=== PATIENT | male | born 1955 | race Asian ===

== ENCOUNTER 2016-12-25 09:21 | Day surgery (SDC) | payer BC ==
[~2016-12-25] VITALS: Ht 167.6 cm; Wt 81.3 kg
[2016-12-25 10:07] VITALS: Ht 167.6 cm; Wt 81.3 kg
[2016-12-25 10:16] VITALS: BP 156/74; PULSE 35; RESP 13
[2016-12-25] MEDS ORDERED: HYDR-3672 PO (10:22)
[2016-12-25] MEDS ORDERED: atorvastatin PO (10:22)
[2016-12-25] MEDS ORDERED: allopurinol PO (10:22)
[2016-12-25] MEDS ORDERED: GLYCOPYRROLATE 0.4 MG INJ ONE (10:47)
[2016-12-25] MEDS ORDERED: ATROPINE 1 MG INJ ONE (10:48)
[2016-12-25] MEDS ORDERED: hydrALAzine 20 MG INJ ONE (10:55)
== END 2016-12-25 15:41 | disposition home or self-care (01) ==
LOC: GIL 09:21
PROVIDERS: ATTEND Internal Medicine Gastroenterology
DX: Z12.11 Encounter for screening for malignant neoplasm of colon (principal); Z53.8 Procedure and treatment not carried out for other reasons
CPT/HCPCS: J0360; J0461; Z7610

== ENCOUNTER 2017-01-08 08:04 | Inpatient (IN) | payer BC ==
[~2017-01-08] VITALS: Ht 170.2 cm; Wt 81.2 kg
[~2017-01-08 08:04] MED LIST: HYDR-3672 PO; allopurinol PO; atorvastatin PO
--- NOTE | 2017-01-08 09:58 | RADRPT ---
PROCEDURE: XR Chest. CLINICAL INDICATION: Shortness of breath TECHNIQUE: Single portable view of the chest was obtained COMPARISON: No priors for comparison FINDINGS: The trachea is midline. The cardiac silhouette is enlarged and pulmonary vascularity are within norm al limits. The lungs are clear. The costophrenic angles are sharp. IMPRESSION: 1. Cardiomegaly. No evidence of acute cardiopulmonary disease. RPTAT: AARR Physician Tami Date Time Electronically viewed and signed by Abdulaziz Garza Physician on 01/08/2017 09:58 DENISSE/
[2017-01-08 10:01] LABS: BASOPHIL # 0.1 10^3/ul (0.0-0.1); BASOPHILS % 2.2 % (0.0-2.0); EOSINOPHILS # 0.2 10^3/ul (0.0-0.5); EOSINOPHILS % 4.3 % (0.0-7.0); HEMATOCRIT 48.5 % (42.0-52.0); HEMOGLOBIN 16.5 g/dl (14.0-18.0); LYMPHOCYTES # 1.3 10^3/ul (0.8-2.9); MEAN CORPUSCULAR HEMOGLOBIN 29.7 pg (29.0-33.0); MEAN CORPUSCULAR VOLUME 87.4 fl (82.0-101.0); MEAN PLATELET VOLUME 10.6 fl (7.4-10.4); MONOCYTE # 0.4 10^3/ul (0.3-0.9); MONOCYTES % 9.5 % (0.0-11.0); NEUTROPHIL # 2.6 10^3/ul (1.6-7.5); NEUTROPHILS % 55.8 % (39.0-77.0); PLATELET COUNT 200 10^3/UL (140-415); RED BLOOD COUNT 5.55 10^6/ul (4.70-6.10); WHITE BLOOD COUNT 4.6 10^3/ul (4.8-10.8)
[2017-01-08] MEDS ORDERED: ALLO300T2 PO (10:16)
[2017-01-08] MEDS ORDERED: ATOR10TA65 PO (10:17)
[2017-01-08 10:27] LABS: ANION GAP 14 (8-16); BLOOD UREA NITROGEN 16 mg/dl (7-20); CALCIUM 9.7 mg/dl (8.4-10.2); CARBON DIOXIDE 29 mmol/L (21-31); CHLORIDE 102 mmol/L (97-110); CREATININE 0.86 mg/dl (0.61-1.24); GLUCOSE 97 mg/dl (70-220); SODIUM 141 mmol/L (135-144)
[2017-01-08 10:40] LABS: TROPONIN-I < 0.012 ng/ml (0.00-0.12)
--- NOTE | 2017-01-08 11:27 | ERA ---
ER Documentation Chief Complaint Date/Time DATE: 01/08/17 TIME: 11:22 Chief Complaint dizziness x this am "almost passed out twice" AV block HPI 61-year-old male with a history of hypertension and known heart block presenting to the ER with near syncope this morning. He states he had 2 episodes of feeling very lightheaded but never actually lost consciousness. He denies any associated chest pain, shortness of breath, or diaphoresis. He has seen a back line cook regarding this but has refused a pacemaker placement in the past. However he feels like he is getting worse and is now open for pacemaker placement. He denies any fevers, chills, vomiting, headache, focal weakness or numbness. ROS All systems reviewed and are negative except as per history of present illness. Medications Home Meds Reported Medications Atorvastatin Calcium (Atorvastatin Calcium) 10 Mg Tablet, 10 MG PO QHS, #30 TAB 01/08/17 Allopurinol* (Allopurinol*) 300 Mg Tablet, 300 MG PO DAILY, TAB 01/08/17 Hydralazine Hcl* (Hydralazine Hcl*) 50 Mg Tab, 50 MG PO TID, #90 TAB 12/25/16 Discontinued Reported Medications [atorvastatin] No Conflict Check, 10 MG PO DAILY 12/25/16 [allopurinol] No Conflict Check, PO DAILY 12/25/16 Allergies Allergies: Uncoded Allergies: PENICILLIN (Allergy, Unknown, 01/08/17) PMhx/Soc History of Surgery: No Anesthesia Reaction: No Hx Respiratory Disorders: Yes (asthma) Hx Cardiac Disorders: Yes (htn, bradycardia) Hx Psychiatric Problems: No Hx Miscellaneous Medical Probl: Yes (high cholesterol, gout) Hx Alcohol Use: Yes (occ) Hx Substance Use: No Hx Tobacco Use: No Smoking Status: Former smoker FmHx Family History: No coronary disease Physical Exam Vitals Vital Signs Date Time Temp Pulse Resp B/P Pulse Ox O2 Delivery O2 Flow Rate FiO2 01/08/17 08:06 97.5 35 20 205/120 100 Physical Exam Const: Well-appearing, nontoxic, no apparent distress, no diaphoresis Head: Atraumatic Eyes: Normal Conjunctiva ENT: Normal External Ears, Nose and Mouth. Neck: Full range of motion..~ No meningismus. Resp: Clear to auscultation bilaterally Cardio: Bradycardic with regular rhythm, no murmurs. 2+ distal pulses. No calf tenderness Abd: Soft, non tender, non distended. Normal bowel sounds Skin: No petechiae or rashes Back: No midline or flank tenderness Ext: No cyanosis, or edema. No calf tenderness Neur: Awake and alert, oriented 3, cranial nerves intact, strength and sensations intact in all 4 extremities Psych: Normal Mood and Affect Result Diagram: 01/08/17 0950 01/08/17 0950 Results 24 hrs Laboratory Tests Test 01/08/17 09:50 White Blood Count 4.610^3/ul Red Blood Count 5.5510^6/ul Hemoglobin 16.5g/dl Hematocrit 48.5% Mean Corpuscular Volume 87.4fl Mean Corpuscular Hemoglobin 29.7pg Mean Corpuscular Hemoglobin Concent 34.0g/dl Red Cell Distribution Width 13.0% Platelet Count 42321^3/UL Mean Platelet Volume 10.6fl Neutrophils % 55.8% Lymphocytes % 28.0% Monocytes % 9.5% Eosinophils % 4.3% Basophils % 2.2% Nucleated Red Blood Cells % 0.0/100WBC Neutrophils # 2.610^3/ul Lymphocytes # 1.310^3/ul Monocytes # 0.410^3/ul Eosinophils # 0.210^3/ul Basophils # 0.110^3/ul Nucleated Red Blood Cells # 0.010^3/ul Sodium Level 141mmol/L Potassium Level 4.0mmol/L Chloride Level 102mmol/L Carbon Dioxide Level 29mmol/L Anion Gap 14 Blood Urea Nitrogen 16mg/dl Creatinine 0.86mg/dl Glucose Level 97mg/dl Calcium Level 9.7mg/dl Troponin I < 0.012ng/ml Procedures/MDM EKG#1: Rate/Rhythm: Complete heart block at 33 bpm QRS, ST, T-waves: No changes consistent w/ acute ischemia Impression: Third-degree heart block, no ischemic changes EKG #2: Rate/Rhythm: Complete heart block at 33 bpm QRS, ST, T-waves: No changes consistent w/ acute ischemia Impression: Third-degree heart block, no ischemic changes Labs CBC: no anemia or evidence of infection BMP: No evidence of electrolyte abnormality, renal failure, hypoglycemia Troponin within normal limits Chest x-ray shows cardiomegaly, no acute abnormalities [facility] Patient is presenting with near syncope and EKG consistent with third-degree heart block. His blood pressure was noted to be elevated upon arrival and he was bradycardic. However he is nontoxic and otherwise hemodynamically stable. He does not need transcutaneous pacing at this time. Is no evidence of ACS. I doubt PE, acute stroke, or intracranial hemorrhage. I spoke with Dr. Boss, who will admit the patient to ICU. I paged Dr. Jane, neonatal nurse practitioner for interventional cardiology. Still awaiting a call back from him. However Dr. Boss will follow up with cardiology. Critical Care Time: 35 minutes Treatments/Evaluations: Close monitoring and treatment of unstable vital signs, cardiorespiratory, and neurologic status, while maintaining tight balance of fluid, respiratory, and cardiac interventions. This time includes discussing the case with the patient and the patients family. This time does not include all procedures stated elsewhere in this record. This time also includes reviewing old records, labs and radiological studies. This time includes examining and re-examining the patient. Additionally, this time also includes arranging care with admitting and consulting physicians. Departure Diagnosis: Primary Impression: Complete heart block by electrocardiogram Additional Impression: Near syncope Condition: Critical KAMALJIT MANNING MD Jan 08, 2017 11:27
[2017-01-08] MEDS: SOD CHLORIDE 0.9% 1,000 ML IV SCH (12:45)
[2017-01-08] MEDS ORDERED: ACETAMINOPHEN 325 MG TAB PO PRN (13:00)
[2017-01-08] MEDS ORDERED: MAGNESIUM HYDROXIDE 30ML CUP PO PRN (13:00)
[2017-01-08] MEDS ORDERED: ONDANSETRON 4 MG INJ IV PRN (13:00)
[2017-01-08] MEDS ORDERED: DOCUSATE SODIUM 100 MG CAP PO PRN (13:00)
[2017-01-08 13:44] LABS: CHOL/HDL RATIO 2.2 RATIO
[2017-01-08 14:16] LABS: THYROID STIMULATING HORMONE 3.25 MIU/L (0.465-4.680); TRIIODOTHYRONINE 1.24 ng/ml (0.97-1.69)
--- NOTE | 2017-01-08 16:04 | CONS ---
DATE OF ADMISSION: 01/08/2017 DATE OF CONSULTATION: 01/08/2017 REASON FOR CONSULTATION: Bradycardia, symptomatic. REQUESTING PHYSICIAN: Dr. Ojeda from the Emergency Department. HISTORY OF PRESENT ILLNESS: Mr. Wylie is a 61-year-old male with history of hypertension, dyslipidemia, gout, prior tobacco, asthma who presents with complaints of dizziness and presyncopal episodes of onset this morning. Patient had been undergoing evaluation for possible permanent pacemaker implantation due to recurrent bradyarrhythmias. The patient had refused prior permanent pacemaker implantations after 3 different cardiologists had recommended it. The patient states that he was in his primary care office yesterday and was noted to have a heart rate of 38, but at that time states he did not feel dizziness or weakness and subsequently was instructed to go to the Emergency Department, but instead went home. This morning when the patient awoke, he had dizziness, weakness with presyncopal episodes and thus presented to the Emergency Department here at [facility]. Upon arrival , temperature 97.5, blood pressure markedly elevated at 205/120, pulse 35, respiratory rate 20, saturating 100%. The patient's labs revealed a white count 4.6, hemoglobin 6.5, platelet count 200. Sodium 141, potassium 4.0, creatinine 0.86, BUN 16. Troponin negative. The patient underwent a chest x- ray revealing cardiomegaly, no acute cardiopulmonary abnormalities. Patient's electrocardiogram revealed a rhythm consistent with a sinus rhythm with underlying heart block 2:1 and at times likely complete heart block and a most likely junctional escape and rate of 36, with no significant ST-T wave abnormalities. The patient's blood pressure has remained stable. Patient now awaits admit to the ICU. PAST MEDICAL HISTORY: As above in HPI. MEDICATIONS CURRENTLY IN HOSPITAL: 1. Lovenox 30 mg subcutaneously daily. 2. Protonix 40 mg IV daily. 3. Zofran p.r.n. 4. Tylenol p.r.n. 5. Colace p.r.n. 5. IV fluid hydration at 50 mL an hour. ALLERGIES: NO KNOWN DRUG ALLERGIES. SOCIAL HISTORY: Former tobacco, social ETOH. No illicit drug use. FAMILY HISTORY: Negative for sudden cardiac or early CAD. REVIEW OF SYSTEMS: As above in HPI. CONSTITUTIONAL: No fevers, chills. PULMONARY: No current shortness of breath. CARDIOVASCULAR: Bradycardia, weakness. GASTROINTESTINAL: No vomiting. GENITOURINARY: No hematuria. MUSCULOSKELETAL: Degenerative joint disease. PSYCHIATRIC: The patient denies depression. NEUROLOGIC: No documented history of CVA. PHYSICAL EXAMINATION VITAL SIGNS: Temperature 97.5, blood pressure most recently 171/70, pulse in the 30s, saturating 99% on room air. GENERAL: The patient is alert, awake, complaining of generalized dizziness, weakness. NECK: JVP approximately 8 to 9 cm of water. CHEST: Fair air movement throughout. HEART: Bradycardic, regular rhythm, normal S1, S2, I/ systolic murmur, nondisplaced PMI. ABDOMEN: Positive bowel sounds, soft. EXTREMITIES: No pitting edema, 1+ pulses bilaterally posterior tibial. LABORATORY DATA: As above in HPI. No further labs for my review at this time. IMAGING STUDIES: As above in HPI. No further imaging studies at this time. ECG: As above in HPI. No further electrocardiograms for my review at this time. IMPRESSION: 1. Bradycardia, symptomatic with 2:1 AV block and likely episodes of higher degree complete heart block. 2. Abnormal electrocardiogram 3. Dizziness, weakness secondary to symptomatic bradycardia. 4. Hypertension, currently uncontrolled. 5. History of dyslipidemia. 6. History of asthma. 7. For tobacco intake. RECOMMENDATIONS: 1. At this time, would admit patient to ICU monitoring and follow on telemetry closely. 2. Refrain from george agents at this time. 3. Reasonable to resume patient's low dose hydralazine. Follow blood pressure closely. 4. Complete a rule out for myocardial infarction to ensure that the patient's constellation of symptoms are not due to an acute coronary syndrome, acute myocardial infarction thus send troponins q.6h. x2. 5. Check a 2D echo to further assess patient's ejection fraction, wall motion and any major valve abnormalities. 6. Check a TSH to be sure subclinical hypothyroidism. He is not continuing any bouts of bradycardia. 7. Check a fasting lipid panel for general risk stratification and initiate lipid-lowering medication as necessary. 8. Maintain atropine at bedside 9. The patient will be scheduled for permanent pacemaker implantation as soon as scheduling allows, likely first thing tomorrow morning. Thank you for allowing me to take part in the care of this patient. I will continue to follow along closely with you. Further recommendations will be made as the patient progresses through his inpatient hospital clinical course. Dictated By: SRUTHI NESBITT/NILESH Conf#: [id number] DID#: [id number] CC: PARISH WHITTEN MD;*EndCC* MTDD
--- NOTE | 2017-01-08 19:53 | QN ---
Documentation Comment [id number] PARISH WHITTEN MD Jan 08, 2017 19:53
--- NOTE | 2017-01-08 20:28 | RADRPT ---
Echocardiogram Report Patient Name: HEATH ARRINGTON Gender: Male Date: 1955 Study Date: 08-Jan-2017 Gallery Manager: LYNETTE Location: [facility] Ref. Physician: PARISH WHITTEN Quality: Good Procedures: Transthoracic echocardiogram with complete 2D, M-Mode, and doppler examination. Indications: Coronary Artery Disease. 2D/M Mode Doppler Measurement Value Normal Ranges Measurement Value Normal Ranges AoR Diam MM 3.1 cm JODI Vmax 2.5 cm2 ACS MM 1.9 cm JODI VTI 2.5 cm2 LA/Ao MM 1.3 AV Peak Dung 1.4 m/sec LA Dimen MM 3.9 cm AV Peak PG 7.8 mmHg LVIDd 2D 4.9 3.5 - 5.6 cm LVOT Peak Dung 1.1 m/sec LVIDs 2D 3.2 2.1 - 4.1 cm LVOT Peak PG 4.9 mmHg LVPWd 2D 1.1 0.6 - 1.1 cm MV E Peak Dung 1.0 m/sec IVSd 2D 1.1 0.6 - 1.1 cm MV A Peak Dung 0.7 m/sec EDV 2D 114.7 cm3 MV E/A 1.3 ESV 2D 31.5 cm3 MV Decel Time 156 msec LVOT Diam 2.0 cm MV Decel [place] 6 MV E/A 1.3 TR Peak Dung 2.1 m/sec TR Peak PG 18.1 mmHg Findings Left Ventricle: Normal left ventricular systolic function. Normal left ventricular cavity size. Normal left ventricular wall thickness. Ejection fraction is visually estimated at 55 %. Right Ventricle: Normal right ventricular size. Normal right ventricular systolic function. Left Atrium: The left atrium is normal in size. Right Atrium: The right atrium is normal in size. Mitral Valve: Trace mitral regurgitation. Aortic Valve: Trace aortic valve regurgitation. Tricuspid Valve: Estimated peak PA systolic pressure 23 mmHg. There is trace tricuspid regurgitation. Pulmonic Valve: Normal pulmonic valve appearance. Pericardium: Normal pericardium with no significant pericardial effusion. Aorta: Normal aortic root. IVC: Normal size and normal respiratory collapse consistent with normal right atrial pressure. Conclusions 1.Normal left ventricular systolic function. Normal left ventricular cavity size. Normal left ventricular wall thickness. Ejection fraction is visually estimated at 55 %. 2.Trace mitral regurgitation. 3.Trace aortic valve regurgitation. 4.Estimated peak PA systolic pressure 23 mmHg. There is trace tricuspid regurgitation. Electronically Signed By: Van Jane 08-Jan-2017 20:28:03 -0700 Patient Name: HEATH ARRINGTON Study Date: 08-Jan-[id number]
[2017-01-09] VITALS (28 sets, daily range): BP systolic 130–176; BP diastolic 73–114; PULSE 34–76; RESP 10–23; TEMP 97.9; Ht 170.2 cm; Wt 81.2 kg
--- NOTE | 2017-01-09 06:07 | HP ---
DATE OF ADMISSION: 01/08/2017 HISTORY OF PRESENT ILLNESS: A 61-year-old male with history of gout, dyslipidemia, hypertension, mayfield s history of dizziness. He has seen Dr. James as an outpatient, after that he has seen Dr. Foster Crawford from cardiology who recommended him to have pacemaker placement and then he lost his ins urance, then he saw Dr. Curiel who had cardiac workup done. Per the patient, the patient will nee d pacemaker. The patient now presents to this hospital complaining of dizziness, has heart rate run aaron at 36 with third-degree heart block. Being seen by Dr. Van Jane in consultation. The pat ient denies any chest pain, palpitations right now. PAST MEDICAL HISTORY: Hypertension, cardiac arrhythmia, gout, dyslipidemia. ALLERGY HISTORY: PENICILLIN. SOCIAL HISTORY: Negative. FAMILY HISTORY: Negative. MEDICATION HISTORY: 1. Allopurinol. 2. Lipitor. 3. Hydralazine. REVIEW OF SYSTEMS: HEENT: Unremarkable. RESPIRATORY: Unremarkable. CARDIOVASCULAR: As mentioned above. ABDOMEN: Unremarkable. EXTREMITIES: Unremarkable. CENTRAL NERVOUS SYSTEM: On and off dizziness, no vertigo. PHYSICAL EXAMINATION: GENERAL: The patient is awake, alert. VITAL SIGNS: Stable. HEAD: Atraumatic, normocephalic. Pupils equal, reactive to light. No pallor or conjunctival icter us. NECK: Supple, no JVD. LUNGS: Clear. CARDIOVASCULAR: S1, S2 normal. The patient has bradycardia. ABDOMEN: Soft, nontender. Bowel sounds positive. No palpable mass. EXTREMITIES: No cyanosis, clubbing, edema. CENTRAL NERVOUS SYSTEM: The patient is awake, alert with no focal deficit. LABORATORY DATA: WBC 4.6, hematocrit 48.5. The patient has chest x-ray with cardiomegaly. IMPRESSION: 1. The patient has dizziness. 2. The patient has cardiac arrhythmia with third degree heart block. 3. Other diagnosis: History of gout. PLAN: To obtain lipid panel, thyroid panel, IV fluids, a 2D echo. The patient will be seen in card iology consultation and possibly will have a pacemaker placement. Orders were done. Dictated By: PARISH REYNOLDS/NILESH Conf#: [id number] DID#: [id number]
[2017-01-09] MEDS: PANTOPRAZOLE 40 MG INJ IV SCH (06:20)
[2017-01-09 06:50] LABS: BASOPHIL # 0.1 10^3/ul (0.0-0.1); BASOPHILS % 1.5 % (0.0-2.0); EOSINOPHILS # 0.2 10^3/ul (0.0-0.5); EOSINOPHILS % 5.2 % (0.0-7.0); HEMATOCRIT 43.9 % (42.0-52.0); HEMOGLOBIN 14.8 g/dl (14.0-18.0); LYMPHOCYTES # 1.3 10^3/ul (0.8-2.9); MEAN CORPUSCULAR HEMOGLOBIN 29.6 pg (29.0-33.0); MEAN CORPUSCULAR HGB CONC 33.7 g/dl (32.0-37.0); MEAN CORPUSCULAR VOLUME 87.8 fl (82.0-101.0); MEAN PLATELET VOLUME 10.9 fl (7.4-10.4); MONOCYTE # 0.4 10^3/ul (0.3-0.9); MONOCYTES % 8.4 % (0.0-11.0); NEUTROPHIL # 2.6 10^3/ul (1.6-7.5); NEUTROPHILS % 55.7 % (39.0-77.0); PLATELET COUNT 181 10^3/UL (140-415); RED CELL DISTRIBUTION WIDTH 13.1 % (11.5-14.5); WHITE BLOOD COUNT 4.6 10^3/ul (4.8-10.8)
[2017-01-09 07:04] LABS: CALCIUM 8.9 mg/dl (8.4-10.2); CREATININE 0.86 mg/dl (0.61-1.24)
[2017-01-09 07:06] LABS: INR 0.92; PROTIME 12.4 Sec (12.2-14.2)
[2017-01-09 07:07] LABS: PARTIAL THROMBOPLASTIN TIME 31.1 Sec (25.0-35.0)
[2017-01-09] MEDS: ENOXAPARIN 30 MG/0.3 ML SYG SC SCH (09:00)
[2017-01-09] MEDS: SOD CHLORIDE 0.9% 1,000 ML IV SCH (09:43)
--- NOTE | 2017-01-09 12:27 | CONS ---
Date/Time of Note Date/Time of Note DATE: 01/09/17 TIME: 12:22 Assessment/Plan Assessment/Plan Chief Complaint/Hosp Course IMPRESSION: 1. Bradycardia, symptomatic with 2:1 AV block and likely episodes of higher degree complete heart block. TSH WNL 2. Abnormal electrocardiogram with nonspecific ST acute coronary syndrome.- negatuve trop x 3/NL EF by echo this admit 3. Dizziness, weakness secondary to symptomatic bradycardia. 4. Hypertension-moderately hold 5. History of dyslipidemia. 6. History of asthma. 7. For tobacco intake. Recc: -Tele -serial ecg's -For PPM implant today -Contijsamuel hydralazine Problems: Consultation Date/Type/Reason Admit Date/Time Jan 08, 2017 at 13:17 Initial Consult Date 01/08/2017 Type of Consultation: Cardiology Reason for Consultation Bradycardia Referring Provider: PARISH WHITTEN MD Exam/Review of Systems Vital Signs Vitals Vital Signs Date Time Temp Pulse Resp B/P Pulse Ox O2 Delivery O2 Flow Rate FiO2 01/09/17 08:00 39 01/09/17 07:38 97.9 15 174/71 99 Room Air Exam Review of Systems: CONSTITUTIONAL: No fevers, chills. PULMONARY: No sob CARDIOVASCULAR: No chest pain/palpitations GASTROINTESTINAL: No nausea/vomiting. GENITOURINARY: No hematuria/dysuria. MUSCULOSKELETAL: No myagias/arthalgias. PSYCHIATRIC: The patient denies depression. NEUROLOGIC: Weakness Constitutional: alert Psych: no complaints Head: normocephalic ENMT: mucosa pink and moist Neck: jvd (9 cm water), supple Respiratory: diminished breath sounds Cardiovascular: regular rate and rhythm Gastrointestinal: non-tender, soft Musculoskeletal: muscle tone (normal) Extremities: edema (none) Neurological: other (No focal deficits) Results Result Diagram: 01/09/17 0538 01/09/17 0538 Results 24 hrs Laboratory Tests Test 01/08/17 12:50 01/08/17 14:40 01/08/17 21:00 01/09/17 02:50 Triglycerides Level 93 Cholesterol Level 174 LDL Cholesterol, Calculated 77 HDL Cholesterol 78 Cholesterol/HDL Ratio 2.2 Thyroid Stimulating Hormone (TSH) 3.250 Thyroxine (T4) 10.0 Total Triiodothyronine 1.24 Troponin I < 0.012 < 0.012 < 0.012 Test 01/09/17 05:38 White Blood Count 4.6 L Red Blood Count 5.00 Hemoglobin 14.8 Hematocrit 43.9 Mean Corpuscular Volume 87.8 Mean Corpuscular Hemoglobin 29.6 Mean Corpuscular Hemoglobin Concent 33.7 Red Cell Distribution Width 13.1 Platelet Count 181 Mean Platelet Volume 10.9 H Neutrophils % 55.7 Lymphocytes % 29.0 Monocytes % 8.4 Eosinophils % 5.2 Basophils % 1.5 Nucleated Red Blood Cells % 0.0 Neutrophils # 2.6 Lymphocytes # 1.3 Monocytes # 0.4 Eosinophils # 0.2 Basophils # 0.1 Nucleated Red Blood Cells # 0.0 Prothrombin Time 12.4 Prothrombin Time Ratio 1.0 INR International Normalized Ratio 0.92 Activated Partial Thromboplast Time 31.1 Sodium Level 139 Potassium Level 4.0 Chloride Level 105 Carbon Dioxide Level 25 Anion Gap 13 Blood Urea Nitrogen 19 Creatinine 0.86 Glucose Level 93 Calcium Level 8.9 Medications Medications Current Medications Sodium Chloride (NS) 1,000 ml @ 50 mls/hr Q20H IV Last administered on 09:43; Admin Dose 50 MLS/HR; Start 01/08/17 at 12:45 Ondansetron HCl (Zofran Inj) 4 mg Q6H PRN IV NAUSEA AND/OR VOMITING; Start 02/14 at 13:00 Acetaminophen (Tylenol Tab) 650 mg Q6H PRN PO PAIN LEVEL 1-3 OR FEVER; Start 01/08/17 at 13:00 Docusate Sodium (Colace) 100 mg Q12H PRN PO CONSTIPATION; Start 01/08/17 at 13 :00 Magnesium Hydroxide (Milk Of Mag) 30 ml DAILY PRN PO CONSTIPATION; Start 01/08 at 13:00 Pantoprazole (Protonix Iv) 40 mg DAILY@06 IV Last administered on 01/09/17 06 :20; Admin Dose 40 MG; Start 01/09/17 at 06:00 Enoxaparin Sodium (Lovenox) 30 mg DAILY SC ; Start 01/09/17 at 09:00 Hydralazine HCl (Apresoline) 25 mg TID PO Last administered on 01/09/17 10:20 ; Admin Dose 25 MG; Start 01/08/17 at 21:00 SRUTHI CHOW Jan 09, 2017 12:27
[2017-01-09] MEDS ORDERED: IODIXANOL LOCM 50 ML BTL ONE (12:32)
[2017-01-09] MEDS ORDERED: CEFAZOLIN 2 GM/50 ML (PMX) 50 ML IVPB ONE (12:32)
[2017-01-09] MEDS ORDERED: LIDOCAINE 1%/EPI 30 ML INJ ONE (12:33)
[2017-01-09] MEDS ORDERED: SOD CHLORIDE 0.9% 1,000 ML IV SCH (13:35)
--- NOTE | 2017-01-09 13:35 | OPR ---
Date/Time of Note Date/Time of Note DATE: 01/09/17 TIME: 13:31 Operative Report Free Text/Dictation complete heart block, DDD [facility] MRI Pacer set at 60 A-lead placed: indication need for a-v synchrony in young active patient Preoperative Diagnosis CHB Postoperative Diagnosis CHB Operation/Procedure Performed [facility] DDD pacer MRI Surgeon see signature line Parimutuel Ticket Checker none Anesthesia Type: MAC Estimated Blood Loss: 0 - 10 ml's Transfusion none Specimen none Grafts/Implants pacer Complications none Pt Condition Post Procedure: stable Procedure Description see # [id number] MARTA ESTRADA MD Jan 09, 2017 13:35
[2017-01-09] MEDS ORDERED: morphine 2 MG INJ IV PRN (14:00)
[2017-01-09] MEDS ORDERED: ACETAMINOPHEN 325 MG TAB PO PRN (14:00)
--- NOTE | 2017-01-09 14:20 | CONS ---
DATE OF ADMISSION: 01/08/2017 DATE OF CONSULTATION: 01/09/2017 TYPE OF CONSULTATION: Cardiology REFERRING PHYSICIAN: Dr. Boss and Dr. Jane. REASON FOR EVALUATION: Complete heart block. HISTORY OF PRESENT ILLNESS: Mr. Wylie is a 61-year-old gentleman known to me from prior evaluation. He has a history of symptomatic bradycardia, who came to the hospital now in complete heart block with intermittent 2:1 block. The patient was monitored overnight in ICU. His heart rate remained t o be low with intermittent complete heart block with symptoms. He has class I indication for pacema ker. I discussed the procedure with the patient and his family. Risk and benefits were outlined, t he risk of sudden cardiac , pneumothorax, hemothorax, bleeding, infection, etc., as well as a lternatives and the patient agrees to proceed. We will facilitate pacemaker placement for now. PAST MEDICAL HISTORY: 1. Hypertension. 2. Prior history of bradycardia. ALLERGIES: NO KNOWN DRUG ALLERGIES. SOCIAL HISTORY: The patient used to smoke, does drink. FAMILY HISTORY: Negative for sudden cardiac , premature coronary, history of diabetes. The pa judy works as a caregiver. REVIEW OF SYSTEMS: CONSTITUTIONAL: No fevers, no chills. Dizziness with bradycardia changes. HEENT: No change in vision or hearing. CARDIAC: Chest pain reported now. RESPIRATORY: Shortness of breath. GASTROINTESTINAL: No nausea, vomiting, diarrhea, constipation. GENITOURINARY: No dysuria, hematuria or pyuria. NEUROLOGIC: No focal deficits. PSYCHIATRIC: No history of psychiatric illness. PHYSICAL EXAMINATION: VITAL SIGNS: Heart rate is now 35 junctional escape. He has a blood pressure 135/80. GENERAL: He is a thin gentleman in no acute distress, alert and oriented x3, aware of his condition . HEAD: Normocephalic, atraumatic. Eyes anicteric. NECK: Supple. JVD 6-7 cm. There is no lymphadenopathy. HEART: Regular with soft holosystolic murmur at the apex. PMI is nondisplaced. There is no S3. LUNGS: Coarse at bases. ABDOMEN: Distended, bowel sounds are present. There is no hepatosplenomegaly. GENITOURINARY: Grossly intact. EXTREMITIES: Show no cyanosis, trace edema. SKIN: Showed no rashes or skin changes. . NEUROLOGICAL: He is able to move his extremities. LABORATORY DATA: Troponin is 0.01. Creatinine 0.8. ASSESSMENT AND PLAN: 1. Complete heart block. The patient has complete heart block. He has class I indication for a pa cemaker. Risks, benefits and alternatives of procedure have been outlined and the patient agrees to proceed with the procedure as noted. 2. Hypertension is well controlled without additional agents indicated after the procedure. 3. Abnormal EKG as outlined in sinus rhythm with bradycardia, complete heart block noted, likely ac oseas on chronic. Continue to pacemaker placement. I would like to thank Dr. Boss and Dr. Jane for referring this patient for my evaluation. Dictated By: MARTA ESTRADA MD ML/NILESH Conf#: [id number] DID#: [id number]
--- NOTE | 2017-01-09 14:38 | RADRPT ---
PROCEDURE: XR Chest. CLINICAL INDICATION: Shortness of breath TECHNIQUE: Single portable view of the chest was obtained COMPARISON: No priors for comparison FINDINGS: The trachea is midline. The cardiac silhouette is enlarged and pulmonary vascularity are within norm al limits. The lungs are clear. The costophrenic angles are sharp. There is a dual lead left-sided p acer device. IMPRESSION: 1. Cardiomegaly. No evidence of acute cardiopulmonary disease. RPTAT: AAPP Physician Tami Date Time Electronically viewed and signed by Abdulaziz Garza Physician on 01/09/2017 14:38 JL/
[2017-01-09] MEDS: CEFAZOLIN 1 GM/50 ML (PMX) 50 ML IVPB SCH ×2 (14:40→21:33)
[2017-01-09] MEDS ORDERED: SOD CHLORIDE 0.9% 1,000 ML ONE (15:04)
--- NOTE | 2017-01-09 15:30 | PN ---
Date/Time of Note Date/Time of Note DATE: 01/09/17 TIME: 15:29 Assessment/Plan VTE Prophylaxis VTE Prophylaxis Intervention: other Lines/Catheters IV Catheter Type (from [facility]): Peripheral IV Urinary Cath still in place: No Assessment/Plan Chief Complaint/Hosp Course IMPRESSION: 1. The patient has dizziness. 2. The patient has cardiac arrhythmia with third degree heart block. 3. Other diagnosis: History of gout. plan pacemaker Problems: Subjective 24 Hr Interval Summary Cardiovascular: no complaints, No orthopenea, No palpitations Exam/Review of Systems Vital Signs Vitals Vital Signs Date Time Temp Pulse Resp B/P Pulse Ox O2 Delivery O2 Flow Rate FiO2 01/09/17 11:45 61 10 97 01/09/17 11:30 153/74 Nasal Cannula 01/09/17 08:30 98.0 Exam Neck: supple Respiratory: clear to auscultation Cardiovascular: regular rate and rhythm Gastrointestinal: soft Musculoskeletal: nl extremities to inspection Extremities: normal pulses Results Result Diagram: 01/09/17 0538 01/09/17 0538 Results 24 hrs Laboratory Tests Test 01/08/17 21:00 01/09/17 02:50 01/09/17 05:38 Troponin I < 0.012 < 0.012 White Blood Count 4.6 L Red Blood Count 5.00 Hemoglobin 14.8 Hematocrit 43.9 Mean Corpuscular Volume 87.8 Mean Corpuscular Hemoglobin 29.6 Mean Corpuscular Hemoglobin Concent 33.7 Red Cell Distribution Width 13.1 Platelet Count 181 Mean Platelet Volume 10.9 H Neutrophils % 55.7 Lymphocytes % 29.0 Monocytes % 8.4 Eosinophils % 5.2 Basophils % 1.5 Nucleated Red Blood Cells % 0.0 Neutrophils # 2.6 Lymphocytes # 1.3 Monocytes # 0.4 Eosinophils # 0.2 Basophils # 0.1 Nucleated Red Blood Cells # 0.0 Prothrombin Time 12.4 Prothrombin Time Ratio 1.0 INR International Normalized Ratio 0.92 Activated Partial Thromboplast Time 31.1 Sodium Level 139 Potassium Level 4.0 Chloride Level 105 Carbon Dioxide Level 25 Anion Gap 13 Blood Urea Nitrogen 19 Creatinine 0.86 Glucose Level 93 Calcium Level 8.9 Medications Medications Current Medications Sodium Chloride (NS) 1,000 ml @ 50 mls/hr Q20H IV Last administered on t 09:43; Admin Dose 50 MLS/HR; Start 01/08/17 at 12:45 Ondansetron HCl (Zofran Inj) 4 mg Q6H PRN IV NAUSEA AND/OR VOMITING; Start 02/14 at 13:00 Acetaminophen (Tylenol Tab) 650 mg Q6H PRN PO PAIN LEVEL 1-3 OR FEVER; Start 01/08/17 at 13:00 Docusate Sodium (Colace) 100 mg Q12H PRN PO CONSTIPATION; Start 01/08/17 at 13 :00 Magnesium Hydroxide (Milk Of Mag) 30 ml DAILY PRN PO CONSTIPATION; Start 01/08 at 13:00 Pantoprazole (Protonix Iv) 40 mg DAILY@06 IV Last administered on 01/09/17 06 :20; Admin Dose 40 MG; Start 01/09/17 at 06:00 Enoxaparin Sodium (Lovenox) 30 mg DAILY SC ; Start 01/09/17 at 09:00 Hydralazine HCl (Apresoline) 25 mg TID PO Last administered on 01/09/17 14:40 ; Admin Dose 25 MG; Start 01/08/17 at 21:00 Acetaminophen (Tylenol Tab) 650 mg Q4H PRN PO NON-CARDIAC PAIN LEVEL (1-3); Start 01/09/17 at 14:00 Morphine Sulfate 2 mg 2 mg Q2H PRN IV FOR NON CARDIAC PAIN (4-10); Start 01/09 at 14:00 Sodium Chloride 1,000 ml @ 75 mls/hr [id number] IV Last administered on 14:41; Admin Dose 75 MLS/HR; Start 01/09/17 at 13:35; Stop 01/09/17 at 18 :34 Cefazolin Sodium (Ancef 1 Gm/50 ml (Pmx)) 50 ml @ 100 mls/hr Q8 IVPB Last administered on 01/09/17 14:40; Admin Dose 100 MLS/HR; Start 01/09/17 at 14: 00 Miscellaneous Information (* Miscellaneous Pharmacy Order) DC all Lovenox, Hepari... ONCE XX ; Start 01/09/17 at 14:00 PARISH WHITTEN MD Jan 09, 2017 15:30
--- NOTE | 2017-01-09 15:54 | SP ---
DATE OF PROCEDURE: 01/09/2017 REFERRING PHYSICIAN: Dr. Boss and Dr. Jane. REASON FOR IMPLANTATION: Complete heart block. Need for AV synchrony in a person who is highly fun ctional which is the indication for the right atrial lead. PROCEDURE PERFORMED: 1. Dual chamber pacemaker placement. 2. Fluoroscopy with interpretation. 3. Upper extremity venogram. DEVICE INFORMATION: 1. Device information pacemaker [employer] MRI pacemaker [id number], serial #[id number]. Rig ht atrial lead is [employer] Tendril MRI lead 46 cm, serial number [id number]. RV lead is [employer] Tendril lead, 52 cm, [id number]. 2. Acute thresholds R-wave is sensed, 100% paced now. 3. Preimplant pacer: PSA was 6.0 millivolts, threshold 0.75 volts at 0.4 msec. Lead impedance 100 ohms. Atrial lead R-wave was 3.5 volts, threshold is 3.5 volts, 0.4 milliseconds, sensing 2.4 mill ivolts, lead impedance 630 ohms. Of note, atrial threshold is high but patient has ____ gradient w ith good sensing. I do not expect large amount of atrial pacing in him and I think it would be appr opriate for AV synchrony. DESCRIPTION OF PROCEDURE: The informed consent was obtained, the patient was brought into heart sta tion in fasting condition. Left side of the chest prepped and draped in usual sterile fashion, 1% l idocaine was used for local analgesia. Using #10 scalpel, a 3 cm incision was placed using cautery and blunt dissection. The pocket was created. Upper extremity venogram was performed to assess pat ency. Using modified Seldinger technique, the subclavian was cannulated and J-wire passed easily. Using split sheath technique over 8-[place] sheath, 2 J-wires were introduced into the vein. An 8-Fr ench sheath was applied. Then, the patient had RV lead placed in the RV apex. It was actively fixe d into the apex. Some slack was left inside the lead and sheath was pulled away. The lead was tied to the muscle with over the sleeve with 2-0 Ethibond sutures. Then, in a similar technique with a J guide stylet over 8-[place] introducer, right atrial lead was positioned in right atrial appendage. High threshold noted but sensing was appropriate and lead was left in place. Then the sheath was pulled away and the lead was also tied to the muscle with 2-0 Ethibond sutures. The leads were bharat ched to the generator. Pocket was irrigated with antibiotic solution and entire system was placed i nside the pocket. The skin was closed with multiple layers of 2-0 Vicryl sutures. Steri-Strips wer e applied on top of the incision. The patient appears to have tolerated the procedure well. He is 1 00% paced now. The plan is to have a chest x-ray to rule out pneumothorax, continuous antibiotics a nd postoperative care. I will see him in the office. I would like to thank Dr. Jane and Dr. Boss for referring this patient for my evaluation. Dictated By: MARTA MARES/NILESH Conf#: [id number] DID#: [id number]
[2017-01-10] VITALS (11 sets, daily range): BP systolic 146–188; BP diastolic 79–96; PULSE 49–63; RESP 16–18
[2017-01-10] MEDS: SOD CHLORIDE 0.9% 1,000 ML IV SCH (00:20)
[2017-01-10] MEDS: CEFAZOLIN 1 GM/50 ML (PMX) 50 ML IVPB SCH ×2 (06:10→13:52)
[2017-01-10] MEDS: PANTOPRAZOLE 40 MG INJ IV SCH (06:10)
[2017-01-10 06:37] LABS: BASOPHIL # 0.1 10^3/ul (0.0-0.1); BASOPHILS % 1.4 % (0.0-2.0); EOSINOPHILS # 0.3 10^3/ul (0.0-0.5); EOSINOPHILS % 4.9 % (0.0-7.0); HEMATOCRIT 46.4 % (42.0-52.0); HEMOGLOBIN 15.7 g/dl (14.0-18.0); LYMPHOCYTES # 1.3 10^3/ul (0.8-2.9); LYMPHOCYTES % 21.9 % (15.0-51.0); MEAN CORPUSCULAR HEMOGLOBIN 29.6 pg (29.0-33.0); MEAN CORPUSCULAR HGB CONC 33.8 g/dl (32.0-37.0); MEAN CORPUSCULAR VOLUME 87.4 fl (82.0-101.0); MEAN PLATELET VOLUME 10.9 fl (7.4-10.4); MONOCYTE # 0.3 10^3/ul (0.3-0.9); MONOCYTES % 5.8 % (0.0-11.0); NEUTROPHIL # 3.9 10^3/ul (1.6-7.5); NEUTROPHILS % 65.8 % (39.0-77.0); PLATELET COUNT 201 10^3/UL (140-415); RED BLOOD COUNT 5.31 10^6/ul (4.70-6.10); RED CELL DISTRIBUTION WIDTH 12.9 % (11.5-14.5); WHITE BLOOD COUNT 5.9 10^3/ul (4.8-10.8)
[2017-01-10 07:17] LABS: CALCIUM 9.3 mg/dl (8.4-10.2); CREATININE 0.91 mg/dl (0.61-1.24); POTASSIUM 4.2 mmol/L (3.5-5.1)
[2017-01-10] MEDS: ENOXAPARIN 30 MG/0.3 ML SYG SC SCH (09:38)
--- NOTE | 2017-01-10 12:55 | PDOCDIS ---
Discharge Instructions CONDITION Patient Condition: Stable HOME CARE INSTRUCTIONS: Special Diet: Low fat/low cholesterol ACTIVITY: Activity Restrictions: Slowly Increase Activity FOLLOW UP/APPOINTMENTS Follow-up Plan f/u own pcp [address] nicola tinoco 1 wk PARISH WHITTEN MD Jan 10, 2017 12:55
[2017-01-10] MEDS ORDERED: CEPH250S33 PO (13:04)
--- NOTE | 2017-01-10 16:05 | RADRPT ---
Vent Rate: 34 bpm RR Interval: 0 msec DC Interval: 0 msec QRS Duration: 96 msec QT Interval: 534 msec QTC Interval: 401 msec P-R-T Christoval: 44 - 16 - 79 degrees Marked sinus bradycardia with complete heart block and Junctional bradycardia Cannot rule out Anterior infarct , age undetermined Abnormal ECG Electronically Signed By: Earnest Victoria [phone]
--- NOTE | 2017-01-10 16:23 | CONS ---
Date/Time of Note Date/Time of Note DATE: 01/10/17 TIME: 16:19 Assessment/Plan Assessment/Plan Chief Complaint/Hosp Course IMPRESSION: 1. Bradycardia, symptomatic with 2:1 AV block and likely episodes of higher degree complete heart block. TSH WNL. NOw POD#1 s/p PPM implantation 2. Abnormal electrocardiogram with nonspecific ST acute coronary syndrome.- negatuve trop x 3/NL EF by echo this admit 3. Dizziness, weakness secondary to symptomatic bradycardia. 4. Hypertension-moderately hold 5. History of dyslipidemia. 6. History of asthma. 7. For tobacco intake. Recc: -Tele -PPM s/p interrogation today with proper function. Apparent bradyacrdia was due to device being interrogated at that time -Resume outoatient anti-hypertenives with hydralazine -ABX prophylaxis x 5 days -D/C planing with outpatient f/u 10-14 days Problems: Consultation Date/Type/Reason Admit Date/Time Jan 08, 2017 at 13:17 Initial Consult Date 01/08/2017 Type of Consultation: Cardiology Reason for Consultation bradycardia Referring Provider: PARISH WHITTEN MD Exam/Review of Systems Vital Signs Vitals Vital Signs Date Time Temp Pulse Resp B/P Pulse Ox O2 Delivery O2 Flow Rate FiO2 01/10/17 16:11 49 01/10/17 15:42 97.5 18 188/96 99 01/10/17 04:39 Room Air Intake and Output 01/09/17 01/09/17 01/10/17 15:00 23:00 07:00 Intake Total 140 ml 810 ml 550 ml Output Total 1020 ml 1250 ml 950 ml Balance -880 ml -440 ml -400 ml Exam Review of Systems: CONSTITUTIONAL: No fevers, chills. PULMONARY: No sob CARDIOVASCULAR: No chest pain/palpitations GASTROINTESTINAL: No nausea/vomiting. GENITOURINARY: No hematuria/dysuria. MUSCULOSKELETAL: No myagias/arthalgias. PSYCHIATRIC: The patient denies depression. NEUROLOGIC: No weakness Constitutional: alert, oriented Psych: no complaints Head: normocephalic ENMT: mucosa pink and moist Neck: jvd (8 cm water), supple Respiratory: clear to auscultation Cardiovascular: other (L uppr chest pacer site covered by dressing with no sig swelling or signs of ongoing bleeding), regular rate and rhythm Gastrointestinal: non-tender, soft Musculoskeletal: muscle tone (normal) Extremities: edema (none) Neurological: other (No focal deficits) Results Result Diagram: 01/10/17 0549 01/10/17 0549 Results 24 hrs Laboratory Tests Test 01/10/17 05:49 White Blood Count 5.9 # Red Blood Count 5.31 Hemoglobin 15.7 Hematocrit 46.4 Mean Corpuscular Volume 87.4 Mean Corpuscular Hemoglobin 29.6 Mean Corpuscular Hemoglobin Concent 33.8 Red Cell Distribution Width 12.9 Platelet Count 201 Mean Platelet Volume 10.9 H Neutrophils % 65.8 Lymphocytes % 21.9 Monocytes % 5.8 Eosinophils % 4.9 Basophils % 1.4 Nucleated Red Blood Cells % 0.0 Neutrophils # 3.9 Lymphocytes # 1.3 Monocytes # 0.3 Eosinophils # 0.3 Basophils # 0.1 Nucleated Red Blood Cells # 0.0 Sodium Level 138 Potassium Level 4.2 Chloride Level 103 Carbon Dioxide Level 27 Anion Gap 12 Blood Urea Nitrogen 15 Creatinine 0.91 Glucose Level 86 Calcium Level 9.3 Medications Medications Current Medications Sodium Chloride (NS) 1,000 ml @ 50 mls/hr Q20H IV Last administered on 00:20; Admin Dose 50 MLS/HR; Start 01/08/17 at 12:45 Ondansetron HCl (Zofran Inj) 4 mg Q6H PRN IV NAUSEA AND/OR VOMITING; Start 02/14 at 13:00 Acetaminophen (Tylenol Tab) 650 mg Q6H PRN PO PAIN LEVEL 1-3 OR FEVER Last administered on 01/09/17 21:37; Admin Dose 650 MG; Start 01/08/17 at 13:00 Docusate Sodium (Colace) 100 mg Q12H PRN PO CONSTIPATION; Start 01/08/17 at 13 :00 Magnesium Hydroxide (Milk Of Mag) 30 ml DAILY PRN PO CONSTIPATION; Start 01/08 at 13:00 Pantoprazole (Protonix Iv) 40 mg DAILY@06 IV Last administered on 01/10/17 06 :10; Admin Dose 40 MG; Start 01/09/17 at 06:00 Enoxaparin Sodium (Lovenox) 30 mg DAILY SC Last administered on 01/10/17 09: 38; Admin Dose 30 MG; Start 01/09/17 at 09:00 Hydralazine HCl (Apresoline) 25 mg TID PO Last administered on 01/10/17 15:59 ; Admin Dose 25 MG; Start 01/08/17 at 21:00 Acetaminophen (Tylenol Tab) 650 mg Q4H PRN PO NON-CARDIAC PAIN LEVEL (1-3); Start 01/09/17 at 14:00 Morphine Sulfate 2 mg 2 mg Q2H PRN IV FOR NON CARDIAC PAIN (4-10); Start 01/09 at 14:00 Cefazolin Sodium (Ancef 1 Gm/50 ml (Pmx)) 50 ml @ 100 mls/hr Q8 IVPB Last administered on 01/10/17 13:52; Admin Dose 100 MLS/HR; Start 01/09/17 at 14: 00 Miscellaneous Information (* Miscellaneous Pharmacy Order) DC all Lovenox, Hepari... ONCE XX ; Start 01/09/17 at 14:00 SRUTHI CHOW Jan 10, 2017 16:23
[2017-01-11] MEDS ORDERED: PANTOPRAZOLE (EC) 40 MG TAB PO SCH (06:00)
--- NOTE | 2017-01-14 20:28 | QN ---
Documentation Comment [id number] PARISH WHITTEN MD Jan 14, 2017 20:28
--- NOTE | 2017-01-15 07:24 | DS ---
DATE OF ADMISSION: 01/08/2017 DATE OF DISCHARGE: 01/10/2017 David Wylie was admitted with dizziness. Has complete heart block, history of gout. The patient was seen by Dr. Jane and Dr. Moncada in consultation. Underwent a dual-chamber pacemaker placement f luoroscopy with interpretation upper extremity angiogram. Patient's postop was monitored in intensi ve care unit, transferred to telemetry floor. The patient is stable to be discharged. DISCHARGE DIAGNOSES: Include complete heart block dual chamber pacemaker placement, history of gout . The patient has neutropenia, resolving. DISCHARGE MEDICATIONS: 1. Patient to continue on Keflex 2. Allopurinol. 3. Atorvastatin. 4. Hydralazine. Follow up as an outpatient with PCP and Dr. Moncada and Dr. Jane as an outpatient. Dictated By: PARISH WHITTEN MD BS/NTS Conf#: [id number] DID#: [id number]
== END 2017-01-10 17:43 | disposition home or self-care (01) | DRG 244 ==
LOC: E/R 08:04 → ICU 13:17 → TEL 01-09 23:30
PROVIDERS: ADMIT Internal Medicine Nephrology; ATTEND Internal Medicine Nephrology
PROC: 02H63JZ Insertion of Pacemaker Lead into Right Atrium, Percutaneous Approach (ICD-10-PCS; 2017-01-09)
PROC: 02HK3JZ Insertion of Pacemaker Lead into Right Ventricle, Percutaneous Approach (ICD-10-PCS; 2017-01-09)
PROC: 0JH606Z Insertion of Pacemaker, Dual Chamber into Chest Subcutaneous Tissue and Fascia, Open Approach (ICD-10-PCS; principal; 2017-01-09 12:30)
DX: I44.2 Atrioventricular block, complete (principal); I10 Essential (primary) hypertension; E78.5 Hyperlipidemia, unspecified; J45.909 Unspecified asthma, uncomplicated; Z72.0 Tobacco use; R00.1 Bradycardia, unspecified; R42 Dizziness and giddiness; I25.10 Atherosclerotic heart disease of native coronary artery without angina pectoris
CPT/HCPCS: 36415; 71010; 80048; 80061; 84436; 84443; 84480; 84484; 85025; 85610; 85730; 93005; 93306; 96374; C9113; J0690; J1650; J7030; J7040; Q9967

== ENCOUNTER 2017-11-11 06:19 | Day surgery (SDC) | END 2017-11-11 09:45 | disposition home or self-care (01) ==